=== PATIENT | female | born 1970 | race Caucasian/White ===

== ENCOUNTER 2020-04-25 22:51 | Observation (INO) ==
[2020-04-26 00:08] LABS: Basophils % 1.4 %; Eosinophils % 2.5 %; Hematocrit 48.2 % (35.3-44.9); Hemoglobin 15.3 g/dL (11.5-15.4); Immature Granulocytes % 2.4 % (0-4); Lymphocytes % 24.4 %; Mean Corpuscular HGB Conc 31.7 g/dL (31.6-35.5); Mean Corpuscular Hemoglobin 29.3 pg (28.0-33.3); Mean Corpuscular Volume 92.3 fL (83.0-100.0); Mean Platelet Volume 10.2 fL (9.4-12.4); Monocytes % 5.9 %; Platelet Count 337 K/mcL (140-400); Red Blood Count 5.22 M/mcL (3.82-4.97); Red Cell Distribution Width 14.6 % (11.5-14.5); Segmented Neutrophils % 63.4 %; White Blood Count 11.8 K/mcL (4.3-11.1)
[2020-04-26 00:09] LABS: Basophils # 0.2 K/mcL (0.0-0.2); Eosinophils # 0.3 K/mcL (0.0-0.6); Lymphocytes # 2.9 K/mcL (0.6-4.6); Monocytes # 0.7 K/mcL (0.0-1.3); Neutrophils # 7.5 K/mcL (1.6-8.9)
[2020-04-26 00:18] LABS: Troponin I < 0.03 ng/mL (< 0.04)
[2020-04-26] MEDS ORDERED: Levothyroxine Sodium 200 MCG VIAL IVP ONE (01:35)
[2020-04-26] MEDS ORDERED: Vancomycin 2,000 MG/520 ML IV.SOLN IVPB ONE (01:43)
[2020-04-26] MEDS ORDERED: Ondansetron 4 MG/2 ML VIAL IVP PRN (01:58)
[2020-04-26 02:25] LABS: Alanine Aminotransferase 46 Units/L (7-52); Albumin 4.6 g/dL (3.5-5.7); Albumin/Globulin Ratio 1.4 (1.1-2.2); Alkaline Phosphatase 99 Units/L (34-104); Aspartate Amino Transferase 32 Units/L (13-39); BUN/Creatinine Ratio 15 (6-26); Bilirubin,Total 0.6 mg/dL (0.3-1.0); Blood Urea Nitrogen 17 mg/dL (6-20); Calcium 10.4 mg/dL (8.6-10.3); Carbon Dioxide 27 mEq/L (23-29); Chloride 99 mEq/L (98-107); Globulin 3.4 g/dL (2.4-3.5); Glucose 156 mg/dL (70-105); Osmolality,Calculated 291 (280-300); Phosphorous 4.6 mg/dL (2.7-4.5); Potassium 3.7 mEq/L (3.5-5.1); Sodium 138 mEq/L (136-145); eGFR For African Americans > 60 (> 60); eGFR For Non-African Americans 52 (> 60)
[2020-04-26 03:00] LABS: Adenovirus Not Detected (Not Detect); Bordetella Pertussis Not Detected (Not Detect); Chlamydophila pneumoniae Not Detected (Not Detect); Coronavirus 229E Not Detected (Not Detect); Coronavirus HKU1 Not Detected (Not Detect); Coronavirus NL63 Not Detected (Not Detect); Coronavirus OC43 Not Detected (Not Detect); Human Metapneumovirus Not Detected (Not Detect); Human Rhinovirus/Enterovirus Not Detected (Not Detect); Influenza A Subtype 2009 H1 Not Detected (Not Detect); Influenza B Not Detected (Not Detect); Mycoplasma pneumoniae Not Detected (Not Detect); Parainfluenza Virus 1 Not Detected (Not Detect); Parainfluenza Virus 2 Not Detected (Not Detect); Parainfluenza Virus 3 Not Detected (Not Detect); Parainfluenza Virus 4 Not Detected (Not Detect); Respiratory Syncytial Virus Not Detected (Not Detect); SARS-CoV-2 Not Detected (Not Detect)
[2020-04-26 03:19] LABS: Triiodothyronine (T3) Total 1.03 ng/mL (0.87-1.78)
[2020-04-26] MEDS ORDERED: Liothyronine Sodium 10 MCG/ML IVP ONE (03:24)
[2020-04-26] MEDS ORDERED: Ipratropium/Albuterol Neb 3 ML IH ONE (03:32)
[2020-04-26] MEDS ORDERED: Ipratropium/Albuterol Neb 3 ML IH PRN (03:32)
[2020-04-26] MEDS ORDERED: Perflutren Lipid Microsphere 1.3 ML in 0.9 % Sodium Chloride 8.7 ML IVP PRN (03:37)
[2020-04-26] MEDS: *HR* Heparin 5,000 UNIT/ML VIAL SQ SCH ×2 (05:00→16:12)
[2020-04-26] MEDS: Gabapentin 300 MG CAPSULE PO SCH ×3 (08:36→20:05)
[2020-04-26] MEDS: BuPROPion SR (12 HR) 150 MG TABLET PO SCH ×2 (08:36→20:05)
[2020-04-26] MEDS: Furosemide 40 MG/4 ML VIAL IVP SCH ×2 (08:37→16:12)
[2020-04-26] MEDS: Budesonide/Formoterol 80/4.5 1 PUFF INH IH SCH (15:24)
[2020-04-26] MEDS ORDERED: Nicotine 21 MG PATCH.TD24 TD SCH (19:45)
[2020-04-26] MEDS: Doxycycline 100 MG CAPSULE PO SCH (20:05)
[2020-04-27] MEDS: *HR* Heparin 5,000 UNIT/ML VIAL SQ SCH (05:14)
[2020-04-27 05:15] LABS: Hematocrit 48.2 % (35.3-44.9); Hemoglobin 14.7 g/dL (11.5-15.4); Mean Corpuscular HGB Conc 30.5 g/dL (31.6-35.5); Mean Corpuscular Hemoglobin 29.3 pg (28.0-33.3); Mean Platelet Volume 9.9 fL (9.4-12.4); Platelet Count 310 K/mcL (140-400); Red Blood Count 5.02 M/mcL (3.82-4.97); Red Cell Distribution Width 14.9 % (11.5-14.5); White Blood Count 11.5 K/mcL (4.3-11.1)
[2020-04-27 05:16] LABS: Basophils # 0.1 K/mcL (0.0-0.2); Basophils % 1.2 %; Eosinophils # 0.3 K/mcL (0.0-0.6); Eosinophils % 2.5 %; Hematocrit 48.3 % (35.3-44.9); Hemoglobin 14.7 g/dL (11.5-15.4); Immature Granulocytes % 1.9 % (0-4); Lymphocytes # 2.3 K/mcL (0.6-4.6); Lymphocytes % 20.5 %; Mean Corpuscular HGB Conc 30.4 g/dL (31.6-35.5); Mean Corpuscular Hemoglobin 29.3 pg (28.0-33.3); Mean Corpuscular Volume 96.2 fL (83.0-100.0); Mean Platelet Volume 9.8 fL (9.4-12.4); Monocytes # 0.6 K/mcL (0.0-1.3); Monocytes % 5.5 %; Neutrophils # 7.8 K/mcL (1.6-8.9); Platelet Count 326 K/mcL (140-400); Red Blood Count 5.02 M/mcL (3.82-4.97); Red Cell Distribution Width 14.9 % (11.5-14.5); Segmented Neutrophils % 68.4 %; White Blood Count 11.4 K/mcL (4.3-11.1)
[2020-04-27 05:31] LABS: Phosphorous 4.8 mg/dL (2.7-4.5)
[2020-04-27 05:32] LABS: Calcium 9.8 mg/dL (8.6-10.3); Potassium 4.4 mEq/L (3.5-5.1)
[2020-04-27] MEDS ORDERED: Levothyroxine Sodium 100 MCG VIAL IVP SCH (06:30)
[2020-04-27] MEDS: Doxycycline 100 MG CAPSULE PO SCH (08:18)
[2020-04-27] MEDS: BuPROPion SR (12 HR) 150 MG TABLET PO SCH (08:18)
[2020-04-27] MEDS: Gabapentin 300 MG CAPSULE PO SCH (08:19)
[2020-04-27] MEDS ORDERED: Liothyronine Sodium 10 MCG/ML IVP SCH (09:00)
[2020-04-27] MEDS ORDERED: Cholecalciferol (D-3) 1,000 UNIT (25MCG) TABLET PO SCH (09:00)
[2020-04-27] MEDS ORDERED: Levothyroxine 25 MCG TABLET PO SCH (09:00)
[2020-04-27] MEDS ORDERED: FLU Vac QV 20-21 (6Month+)/PF 0.5 ML SYRINGE IM ONE (10:18)
[2020-04-27 11:09] VITALS: BP 139/75
[2020-04-27] MEDS: Budesonide/Formoterol 80/4.5 1 PUFF INH IH SCH (11:31)
== END 2020-04-27 14:16 | disposition home or self-care (01) ==
LOC: ICNU 22:51 → EMEROOARM 22:51 → SUATTDRO 04-26 03:05 → ICNU 04-26 04:55 → 2NNU 04-26 11:13 → 2ANU 04-27 04:01
PROVIDERS: ADMIT Internal Medicine; ATTEND Internal Medicine